=== PATIENT | female | born 1980 | race Caucasian/White ===

== ENCOUNTER 2025-01-20 16:21 | Emergency (ER) | payer MEDICARE ==
[2025-01-20 17:30] LABS: #Basophils 0.2 thou/uL (0.0-0.2); #Eosinophils 0.1 thou/uL (0.0-0.7); #Lymphocytes 0.9 thou/uL (1.20-3.40); #Monocytes 0.7 thou/uL (0.11-0.59); #Neutrophils 4.7 thou/uL (1.40-6.50); %Basophils 2.6 % (0.0-1.0); %Eosinophils 1.8 % (0.0-10.0); %Lymphocytes 13.1 % (21.0-51.0); %Monocytes 10.8 % (0.0-10.0); %Neutrophils 71.8 % (42.0-75.0); Hematocrit 46.8 % (36.0-47.0); Hemoglobin 15.8 g/dL (12.0-16.0); Mean Corpuscular HGB CONC 33.8 g/dL (32.0-36.0); Mean Corpuscular Hemoglobin 31.7 pg (27.0-31.0); Mean Corpuscular Volume 93.8 fl (78.0-98.0); Mean Platelet Volume 7.2 fL (7.4-10.4); Platelet Count 182 10x3/uL (130-400); RBC Distribution Width 13.2 % (11.5-14.5); Red Blood Cell (RBC) Count 4.99 mill/uL (4.20-5.40); White Blood Cell (WBC) Count 6.6 10x3/uL (4.8-10.8)
[2025-01-20 17:33] LABS: MDiff Complete? YES
[2025-01-20 17:37] LABS: ALT (SGPT) 57 U/L (Less than 34); AST (SGOT) 31 U/L (11-34); Albumin 3.3 g/dL (3.1-4.5); Alkaline Phosphatase 93 U/L (40-110); Anion Gap 15 mmol/L (10-20); BUN (Urea Nitrogen) 18 mg/dL (7.0-18.7); Bilirubin, Total 0.7 mg/dL (0.3-1.2); Calc. Creatinine Clearance 0 mL/min (70-130); Calcium 8.9 mg/dL (7.8-10.44); Carbon Dioxide 31 mmol/L (22-29); Chloride 111 mmol/L (98-107); Estimated GFR 64; Globulin 3.9 g/dL (2.4-3.5); Glucose 144 mg/dL (70-105); Magnesium 2.3 mg/dL (1.6-2.6); Potassium 3.2 mmol/L (3.5-5.1); Protein, Total 7.2 g/dL (6.0-8.3)
[2025-01-20 17:38] LABS: Troponin I 0.013 ng/mL (< 0.028)
[2025-01-20 17:40] LABS: Sodium 154 mmol/L (136-145)
[2025-01-20] MEDS ORDERED: Potassium Bicarbonate/Cit Ac 20 MEQ TAB ONE (19:12)
== END 2025-01-20 19:55 | disposition short-term general hospital (02) ==
LOC: BURERS 16:21
DX: E87.6 Hypokalemia (principal); E87.0 Hyperosmolality and hypernatremia
CPT/HCPCS: 71046; 83735; 84484; 85025; 93005; 96360